=== PATIENT | female | born 1985 | race Caucasian/White ===

== ENCOUNTER 2016-09-24 08:27 | Inpatient (IN) | payer OTHER ==
[~2016-09-24] VITALS: Ht 162.6 cm; Wt 87.2 kg
--- NOTE | ~2016-09-24 | TXPLANREV ---
"PATIENT: AMBER CAMPOS S | | [facility] UNIT #: [id number] | [address] AGE/SEX: 31 F : 87 | [address] | [place] [address] ADMIT/REG DATE: 09/24/16 | ROOM: [facility] LOC: ADTC | ADTC | Treatment Plan/Staffing Review Date: 2016 Treatment plan was reviewed and determined appropriate as written: TREATMENT PLAN IS APPROPRIATE WRITTEN. Treatment plan was reviewed and the following changes/addition/deletions are necessary: NO CHANGES ARE INDICATED AT THIS TIME. Discharge plans were reviewed and determined appropriate as previously documented: YES Discharge plans were reviewed and determined to be as follows: CLIENT HAS VERBALIZED WILLINGNESS TO COMPLETE RECOMMENDED AFTERCARE HERE AT [facility]. TENTATIVE DISCHARGE DATE IS 2016. Other pertinent issues discussed during this staffing review include: CLIENT IS WORKING ON STEP ONE, STINKIN THINKIN AND FEELINGS LETTERS. SHE APPEARS TO BE GAINING NEW INSIGHT AND UNDERSTANDING. CLIENT WOULD LIKELY BENEFIT FROM CODEPENDENCY TREATMENT DURING THE COURSE OF HER AFTERCARE. NO FAMILY WILL BE INVOLVED. Staff Present: SUNNI MONGE PRIMARY COUNSELOR: ANNIE BARRAGAN [facility] Client Signature Counselor Signature Date Time "
--- NOTE | ~2016-09-24 | TXPLANREV ---
"PATIENT: AMBER CAMPOS S | | [facility] UNIT #: [id number] | [address] AGE/SEX: 31 F : 87 | [address] | [place] [address] ADMIT/REG DATE: 09/24/16 | ROOM: [facility] LOC: ADTC | ADTC | Treatment Plan/Staffing Review Date: 08 OCTOBER 2016 Treatment plan was reviewed and determined appropriate as written: TREATMENT PLAN IS APPROPRIATE WRITTEN. Treatment plan was reviewed and the following changes/addition/deletions are necessary: ADDITIONAL TX PLANS WERE CREATED TO ADDRESS FEELINGS LETTERS. Discharge plans were reviewed and determined appropriate as previously documented: NONE PREVIOUSLY DOCUMENTED. Discharge plans were reviewed and determined to be as follows: CLIENT WILL BE RECOMMENDED TO COMPLETE OUTPATIENT AFTERCARE. TENTATIVE DISCHARGE DATE IS 2016. Other pertinent issues discussed during this staffing review include: CLIENT APPEARS TO BE GAINING NEW INSIGHT AND UNDERSTANDING. SHE IS COMPLIANT. CLIENT HAS COMPLETED GETTING STARTED PACKET AND PARTS OF STEP ONE. SHE WILL BE ASSIGNED FEELINGS LETTERS AND LETTING GO OF THE NEED TO CONTROL. IT DOESN'T APPEAR THAT SHE WILL HAVE ANY FAMILY SUPPORT. Staff Present: PIPE COLE PRIMARY COUNSELOR: ANNIE BARRAGAN [facility] Client Signature Counselor Signature Date Time "
--- NOTE | ~2016-09-24 | RESCARESUM ---
"PATIENT: AMBER CAMPOS S | | 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 SHE HAS GAINED NEW UNDERSTANDING AND INSIGHT IN TO THE POWER OF ADDICTION AND HOW IT HAS NEGATIVELY IMPACTED ALL AREAS OF HER LIFE. Continued Obstacles to Sobriety/Relapse Issues: LACK OF HEALTHY SUPPORT SYSTEM (FAMILY), OLD USING FRIENDS/PLACES, ISOLATING, NEGATIVE THINKING, UNREALISTIC EXPECTATIONS OF SELF AND OTHERS, FAILURE TO FOLLOW THROUGH WITH AFTERCARE RECOMMENDATIONS, AA/NA FELLOWSHIP AND USING HER SPONSOR. Family Issues Addressed: CLIENT ADDRESSED FAMILY OF ORIGIN ISSUES BUT NEEDS ADDITIONAL WORK ON THESE. Y Individual Therapy Y Group Therapy Y Educational Series on Substance Abuse N Parents/Significant Others Attended Family Program N Acute Medical Problems During the Course of Treatment Y Accepting of Substance Abuse Problem Completed AA Step # 1 During This Level of Care CLIENT DID WELL WITH THIS Significant Incidences During Treatment: NONE Reason For Discharge: Y Completed Residential [place] Goals and Ready For Next Level of Care Continuing Care Plan/Recommendations: Y Sponsor Y AA Meetings/NA Meetings Y Outpatient Y Co-dependency Services Y [address] PATIENT: AMBER CAMPOS S | | [facility] UNIT #: [id number] | [address] AGE/SEX: 31 F : 87 | [address] | [place] [address] ADMIT/REG DATE: 09/24/16 | [facility] LOC: ADTC | ADTC | Summary of Residential Care House NEEDS CONSIDERATION IF CLIENT IS UNABLE TO MAINTAIN SOBRIETY. Specific Continuing Care Plan: CLIENT WILL BE REFERRED TO OUTPATIENT AFTERCARE AT [facility] WITH ANNIE BARRAGAN. CLIENT WILL ATTEND BI-WEEKLY INDIVIDUAL SESSIONS AND WEEKLY GROUP THERAPY/CODEPENDENCY. CLIENT WILL BE REQUIRED TO ATTEND AT LEAST TWO AA/NA MEETINGS EACH WEEK AND HAVE ONE ON ONE SESSIONS WITH HER SPONSOR WEEKLY. PRIMARY COUNSELOR: ANNIE BARRAGAN [facility]"
--- NOTE | ~2016-09-24 | INDIVTXPLN ---
"PATIENT: AMBER CAMPOS S | | [facility] UNIT #: [id number] | [address] AGE/SEX: 31 F : 87 | [address] | [place] [address] ADMIT/REG DATE: 09/24/16 | ROOM: [facility] LOC: ADTC | ADTC | Individualized Treatment Plan Date: 01 OCTOBER 2016 Problem Statement/Issue Identified: DIANA'S ONGOING HISTORY OF SUBSTANCE ABUSE HAS RESULTED IN SERIOUS CONSEQUENCES IN ALL AREAS OF HER LIFE. HER CHEMICAL USE HAS RESULTED IN CRIMINAL THINKING WHICH EVENTUALLY LED TO CONVICTIONS ON FELONY DRUG CHARGES, INCARCERATION AND PROBATION. Goal: DIANA WILL HONEST EXAMINE AND BE WILLING TO IDENTIFY SPECIFIC EXAMPLES OF ALCOHOL/DRUG RELATED CHOICES AND BEHAVIORS THAT HAVE RESULTED IN NEGATIVE CONSEQUENCES IN HER LIFE AND HER RELATIONSHIPS. Objectives/Activities to achieve goal: 1. Diana will complete GETTING STARTED IN TREATMENT packet identifying her feelings about being in treatment, a brief life history and her commitment statement. She will process her work and any insights gained with her primary counselor and selected pages in group. Due Date: Complete: Incomplete: 2. Diana will read MARIANA GOMEZ identifying parallels from examples provided in the text to her own behaviors and choices. She will process her work with her primary counselor. Due Date: Complete: Incomplete: 3. Diana will complete an honest and thorough STEP ONE providing specific examples of powerlessness and unmanagability. She will process her work with her primary counselor and share specific pages in group. Due Date: Complete: Incomplete: 4. Diana will complete MY CHANGE PLAN identifying changes you are willing to make in your recovery to improve chances of successful and custodial sobriety. She will process her work and insights gained with her primary counselor. Due Date: Complete: Incomplete: Client signature Date Counselor signature Date Outcome/Measurement of Progress Towards Goal: Counselor's signature Date "
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
--- NOTE | ~2016-09-24 | CLPRLASSUM ---
"PATIENT: AMBER CAMPOS S | | [facility] UNIT #: [id number] | [address] AGE/SEX: 31 F : 87 | [address] | [place] [address] ADMIT/REG DATE: 09/24/16 | ROOM: [facility] LOC: ADTC | ADTC | Client Problem List/Assessment Summary Date: 01 OCTOBER 2016 Problems identified by the client: PRIMARY SUPPORT GROUP, SOCIAL, EDUCATION, OCCUPATIONAL, CHILD CUSTODY, LEGAL Problems identified by significant others: SAME ABOVE Client's Strengths as Identified by Client: OUTGOING, OPEN-MINDED, STRONG, LEADER, EASY TO GET ALONG WITH, GOOD LISTENER, UNDERSTANDING, BIG HEART, PATIENT Problem List: Endy ORTIZ'S ONGOING HISTORY OF CHEMICAL ABUSE HAS RESULTED IN SERIOUS CONSEQUENCES IN ALL AREAS OF HER LIFE. HER CHEMICAL USE HAS RESULTED IN CRIMINAL THINKING WHICH EVENTUALLY LED TO CONVICTIONS ON FELONY DRUG CHARGES. Endy ROTIZ WILL NEED TO GAIN NEW UNDERSTANDING AND AWARENESS OF POTENTIAL RELAPSE TRIGGERS AND ISSUES; SHE WILL NEED TO DEVELOP A PLAN TO DEAL WITH THEM THEY ARISE TO AVOID RELAPSE. Endy ORTIZ HAS GUILT AND SHAME FOR THE PAIN SHE HAS CAUSED HER CHILDREN BY HER ONGOING DRUG USE. Endy ORTIZ HAS UNRESOLVED FAMILY OR ORIGIN ISSUES. Endy ORTIZ NEEDS ONGOING WORK TO BUILD A STRONGER RELATIONSHIP WITH HER HIGHER POWER. Code Webster: T: to be addressed during course of treatment O: problem noted, expected to resolve itself with abstinence--specific tx plan not required R: problem noted, will be referred upon discharge PRIMARY COUNSELOR: ANNIE BARRAGAN [facility]"
--- NOTE | ~2016-09-24 | INDIVTXPLN ---
"PATIENT: AMBER CAMPOS S | | [facility] UNIT #: [id number] | [address] AGE/SEX: 31 F : 87 | [address] | [place] [address] ADMIT/REG DATE: 09/24/16 | ROOM: [facility] LOC: ADTC | ADTC | Individualized Treatment Plan Date: 2016 Problem Statement/Issue Identified: DIANA NEEDS TO GAIN AWARENESS OF POTENTIAL RELAPST TRIGGERS AND ISSUES; SHE WILL NEED TO DEVELOP A PLAN TO DEAL WITH THEM THEY ARISE. Goal: DIANA WILL DEVELOP AN EFFECTIVE PLAN TO DEAL WITH POTENTIAL RELAPSE TRIGGERS/ISSUE. Objectives/Activities to achieve goal: 1. Diana will obtain a TEMPORARY SPONSOR while she is in treatment. Due Date: Complete: Incomplete: 2. Diana will complete MY CHANGE PLAN identifying changes she is willing to make in thinking, behaviors and friends to reinforce her recovery. She will process her work with her primary counselor and selected pages in group. Due Date: Complete: Incomplete: Client signature Date Counselor signature Date Outcome/Measurement of Progress Towards Goal: Counselor's signature Date "
--- NOTE | 2016-09-24 14:03 | NUR ---
INITIAL CONTACT: Did talk with this client and welcomed her to treatment. Explained that we will sit down tomorrow and visit. Encouraged her to complete initial paperwork.
--- NOTE | 2016-09-24 15:53 | NUR ---
ADMISSION NOTE Client is a 31 y/o single female, referred to treatment by probation and brought here today by her significant other from their home in [place] where they reside with his mother. Client anticipates that her significant other will participate in family group. Client states NKMA and brings no medications with her today. Client states DOC is meth, last used 5 months ago. Client staes no other drug or alcohol consumption during that time. Client was searched, no contraband found. Rights/Responsibilities: Copy given and explained to client. Signed and accepted by client. Client oriented to physical lay out of the ADTC unit, given Big Book and admission packet. A Elver was assigned. Misti
--- NOTE | 2016-09-24 18:24 | NUR ---
Education: 1 Hour. Client attended Quentin Garg video " Unhealthy Boundaries."
--- NOTE | 2016-09-24 22:23 | NUR ---
Tech note : Client went on a mile and a half long walk, participated in guided meditation and went to an onsite AA meeting. She was seen by the DR, checked into her room and gave her first intro. SE; Entering Tx.
--- NOTE | 2016-09-25 04:21 | NUR ---
tech note: client was motionless in no distress at all bed checks.
--- NOTE | 2016-09-25 14:03 | NUR ---
Group 1.5 Hr Ratio 2:22/Topic today was confronting properly. Client shared how she could relateto wanting respect and how if she did not get it she reacted negitively.
--- NOTE | 2016-09-25 14:13 | NUR ---
INDIVIDUAL SESSION 1 HR: Client ORIENTED TO TREATMENT GUIDELINES, GOALS & OBJECTIVES. She verbalized understanding. Began to review her BIO/PSYCHO/SOCIAL ASSESSMENT. Client was cooperative throughout interview and shed tears from time to time. Client shared that she and her Significant Other were arrested April 07, 2016 and charged with 5 felonies charges of Possession of a Controlled Substance and Possession with Intent to Distribute. She was sentenced the first of the month to 3 years probation and treatment. Client born and raised in [place]. She and SO (originally from [place]) were in the state to visit his mother when arrested. Client shared that she has been drinking/using since the age of 15. Client identifies both parents as addicts, stating that her dad of cardiac problems excerbated by drug use about six years ago. Client shared that she has been 7 times with two pregnancies ending in miscarriage. Client said she lost cu stody of her children due to being homeless, but has maintained relationships with four of them. One son was addopted as an infant. The others are with their respective fathers. Client shared that she spent five months in [facility] after her arrest which gave her time to think about all of this. She also turned 31 years old which was a reality check. Client was accused of selling pot when she was in 8th grade and kicked out of school. She never went back. She is glad that getting her GED is part of her probation order. Client encouraged to work on GETTING STARTED packet and given LETTING GO OF THE NEED TO CONTROL. Session 09/29
--- NOTE | 2016-09-25 14:25 | NUR ---
FAMILY NOTE: Failed attempt to reach client's SO. Left msg for him to call back.
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
--- NOTE | 2016-09-25 14:29 | NUR ---
Afternoon Group, 1.0 hours, 02/18 ratio, Client attended and actively participated in group which consisted of homework shared and discussion of taking suggestions from others while in treatment. Client listened while others shared
--- NOTE | 2016-09-25 15:26 | NUR ---
Tech Note: Client attended speaker meeting with volunteer Adriel Whitney Client is working on Getting Started.
--- NOTE | 2016-09-25 20:59 | NUR ---
Tech note: client watched tv and movies Attended optional offsite AA meeting SE:speaker
--- NOTE | 2016-09-26 04:31 | NUR ---
Bed note: client was in bed with eyes closed and no distress at all bed checks.
--- NOTE | 2016-09-26 15:25 | NUR ---
Tech notes: Client attended NA panel and is working on Getting started
--- NOTE | 2016-09-26 20:51 | NUR ---
Tech Note: Client played "5 Second Rule Game" for Recreation and attended an outside AA Speaker Meeting at [address]. Late to client meeting. S/E: Nap
--- NOTE | 2016-09-27 04:13 | NUR ---
tech note: client was motionless in no distress at all bed checks.
--- NOTE | 2016-09-27 13:37 | HP ---
ADMIT: 09/24/2016 RM/LOC: Ren[facility] MR#: [id number] [address] [facility] [address] [place], [place] [id number] AMBER CAMPOS [address] [address] History and Physical SEX: F AGE: 31 : 1985 DATE OF SERVICE: CHIEF COMPLAINT: Drug problem. CLINICAL HISTORY: The patient is a 31-year-old white female from [place] who recently moved to [place]. The patient actually moved from [place] to try and get away from the drug culture she had fallen into. She and her significant other had moved to [place] in March 2016. They had been in [place] for less than 2 weeks when she was arrested for 5 different felonies. Ultimately 4 of these were dropped and one was lowered to a class 4 felony so that she could be placed on probation. The patient was arrested for possession of methamphetamine, pot, hydrocodone, Suboxone with intent to deliver. Ultimately she pleaded out and was able to get probation. The patient has been clean since she was arrested on 04/07/2016. She did spend 5 months in senior care from 04/07/2016 until 09/14/2016, she was in senior care. She was released from senior care approximately 10 days ago and has been staying with a family member and has not used since getting out of senior care. As a portion of her probation agreement, she has to complete residential treatment and so she is admitted at this time for treatment of her polysubstance dependency. She readily admits that she is a drug addict and that her drug of choice is methamphetamine. She first started using meth at age 17 and has been an IV user off and on for the past 14 years. The only significant period of time that she has not used is when she has been . Typically she uses anywhere from 1 to 2 g per day. She went through a period of time when she just used IV. Most recently she has been primarily smoking meth. In addition to her daily meth use, she also uses pot daily although the more meth she uses the less pot she smokes. She notes that she used to be a daily user, but now is down to smoking pot usually only 2 or 3 days a week and usually just 2-3 bowls per day. The patient also has had some past abuse of alcohol. There was a period of time when her children were taken away from her that she was drinking heavily on a daily basis from age [age]. However, she notes when she is using meth heavily, she usually do not have much desire to drink, but if not using meth, she will drink on a regular basis. In addition to her meth, pot, and alcohol use, she has used cocaine off and on in the past but prefers meth over cocaine. She denies any abuse of prescription drugs and denies any abuse of opiates although when she was arrested, she had both hydrocodone and Suboxone in her possession. She notes that she likes to keep the opiates around for when she gets headaches since she does have a history of migraines. She then uses the opiates as they would be normally prescribed although she does not have a prescription for them. She usually gets the opiates that she takes for headaches on the street. She has had no prior treatment. As noted, she comes to treatment at this time after having been clean for approximately the last 6 months. PAST MEDICAL HISTORY: The patient's only hospitalizations have been for deliveries. She has had 5 children, all delivered via . She had C- sections in 2003, 2005, 2006, 2008, and 2012. At the time of her last C- section, they did do a tubal ligation. ADMIT: 09/24/2016 RM/LOC: Renita [facility] MR#: [id number] [facility] [address] [place] [id number] AMBER CAMPOS [address] [address] History and Physical SEX: F AGE: 31 : 1985 PAST SURGICAL HISTORY: C-sections x5 plus the tubal ligation. CURRENT MEDICATIONS: None. ALLERGIES: NONE KNOWN. OBSTETRICAL AND GYNECOLOGICAL HISTORY: She is a 7 para 5-0-2-5 status post tubal ligation. She notes her menses are regular with last menstrual period having been 04/07/2016. REVIEW OF SYSTEMS: A 12-point review of systems is essentially negative except for her recent difficulty with amenorrhea. As noted, she normally has regular menses, but since she was arrested, she has not had a menses. She does note that while she set in senior care for the last 5 months, she did put on approximately 30 pounds of weight which may have affected her menstrual cycle. Also she notes she is under a great deal of stress due to her legal issues and other financial problems. Do note, she is a smoker, typically smokes a half pack a day. Remainder of her review of systems is otherwise negative. SOCIAL HISTORY: The patient is single. She has been with her current significant other for the past year. She notes she has 5 children from prior relationships. Her oldest child is 13 and lives with his father in [place]. She notes her 11-year-old, 9-year-old, and 4-year-old, live with a family member in [place]. Her 6-year-old, she gave up for adoption. She does not have custody of any of her children. The patient notes she dropped out of school in the 8th grade. She has never completed her GED. She is unemployed. When they moved to [place], were staying with his felipe's mother who lives here in [place]. FAMILY HISTORY: She notes that her parents when she was young. She notes her father is . He had a history of alcoholism and drug addiction and from a drug overdose in 2010. Her mother has a history of drug and alcohol abuse as well and she has been clean for a number of years. She notes that she has an older brother, who is a meth addict. She has a younger brother who does not use. From what she knows, there is a strong history of substance abuse on both sides of her family. PHYSICAL EXAMINATION: VITAL SIGNS: At this time temp is 97.3 pulse 75, respirations 16, blood pressure 108/67, height 5 feet 4 inches, and her weight is 193 pounds. GENERAL: The patient is a very healthy appearing 31-year-old adult female, in no acute distress. She is oriented x3. HEENT: Today is unremarkable. NECK: Supple. Thyroid not enlarged. No cervical adenopathy. LUNGS: Noted to be clear. HEART: Regular rhythm without murmur. ABDOMEN: Somewhat obese, soft, and nontender. No masses. No organomegaly. She does have some mild tenderness in the left lower quadrant. ADMIT: 09/24/2016 RM/LOC: Renita [facility] MR#: [id number] [address] [place] [id number] [place] [address] History and Physical SEX: F AGE: 31 : 1985 BREAST and PELVIC: Exams not performed. EXTREMITIES: Normal to gross exam. NEUROLOGICAL: Within normal limits. INTEGUMENT: No rashes. MENTAL STATUS EXAMINATION: She is pleasant and cooperative. Affect is appropriate. No bizarre ideation. No delusions or hallucinations. She appears to be of average intelligence. Her memory is intact. She is oriented x3. Insight is limited. Judgment is guarded. ASSESSMENT AT THE TIME OF ADMISSION: 1. Stimulant/methamphetamine use disorder, severe. 2. Cannabis use disorder, severe. 3. Alcohol use disorder, moderate. 4. Tobacco use disorder. 5. Secondary amenorrhea for the past 6 months. 6. History of migraine headaches. PLAN: To admit the patient to the residential care program at the [facility] with tentative discharge date of 10/22/2016. Upon completion of treatment, she is unsure of her plans. She will have to fulfill her probation requirements. She would like to return to her previous or current living arrangement with her significant other and his mother, but notes that she will do whatever it takes to remain in compliance with her probation agreement. She does recognize the importance of a supportive environment and also recognizes the importance of remaining involved in AA and NA a to help maintain her long-term sobriety. Mike Ribeiro MD/ quyen JOB #: [id number] CC: Mike Ribeiro, Attending Physician FAMILY PHYSICIAN, Family Physician
--- NOTE | 2016-09-27 16:26 | NUR ---
Tech Note: Client participated in Big Book study and is working on Feelings Letters. She had a visitor.
--- NOTE | 2016-09-27 23:53 | NUR ---
TECH NOTE: Client attended AA Panel, participated in community clean, watched TV and movies and attended [employer]PER[employer] Meeting S/E: Visit, [employer]
--- NOTE | 2016-09-28 05:00 | NUR ---
BED NOTE: Client lying motionless, with eyes closed at all bedchecks.
--- NOTE | 2016-09-28 10:30 | NUR ---
Tech Notes: Client is working on Getting started
--- NOTE | 2016-09-28 14:13 | NUR ---
Education Note: Client watched video for education,
--- NOTE | 2016-09-28 14:31 | NUR ---
Education/1 hr/ Focused on looking at clients character defects and we read "The Wall" and then they each ale their wall and explained them to the group. This client participated.
--- NOTE | 2016-09-28 15:33 | NUR ---
Recovery 101, 1.0 hours, Client attended and actively participated in Recovery 101 which focused on feeling special or unique from the book 12 Things That Mess Up Recovery.
--- NOTE | 2016-09-28 18:32 | NUR ---
Education note: 1 hour lecture on communication given by counselor
--- NOTE | 2016-09-28 23:08 | NUR ---
Tech note: played catchphrase for rec and attended NA meeting SE: got 6 month coin
--- NOTE | 2016-09-29 03:51 | NUR ---
Bed note: client was in bed with eyes closed and no distress at all bed checks.
--- NOTE | 2016-09-29 10:51 | NUR ---
Tech Note: Client participated in light stretching for morning exercise. Client followed programming.
--- NOTE | 2016-09-29 11:30 | NUR ---
GROUP 1.5 HRS. 1:9 Group discussion included issues of gaining healthier coping skills to deal with feelings and communication. Peer processed HOW TO GET STARTED IN TREATMENT assignment. This client was mostly quiet but appeared attentive.
--- NOTE | 2016-09-29 14:16 | NUR ---
Education: Client viewed a video presentation, "The Enablers."
--- NOTE | 2016-09-29 16:26 | NUR ---
Relapse prevention, 1.0 hours, Client attended and actively participated in relapse prevention education which focused on developing a relapse prevention plan.
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
--- NOTE | 2016-09-29 19:42 | NUR ---
Education: 1 hour lecture on "Step 1" given by counselor
--- NOTE | 2016-09-29 23:19 | NUR ---
Client worked with kota for recreation, participated in guided meditation, attended the on unit A.A.Meeting.
--- NOTE | 2016-09-30 04:10 | NUR ---
Bed Note: Client was in bed and motionless with no sign of distress at all bed checks
--- NOTE | 2016-09-30 11:45 | NUR ---
AM GROUP 10:1/1.5 HR: Client and peers welcomed and ORIENTED TWO NEW MEMBERS TO GROUP PURPOSE, GUIDELINES, GOALS AND OBJECTIVES. The group heard two individuals process assignments, while this client shared more detail and new insights as part of her feedback. Client related to having to take on parental responsibilities for her younger brother when she was only [age] years old. Client talked about the anger that built up toward her mother, an active addict, who would eventually introduce this client to meth. Client verbalized her realization in treatment that she is on the same road her mother has been on and doesn't want this for herself or her children.
--- NOTE | 2016-09-30 15:00 | NUR ---
Tech Note: Client participated in light stretching for morning exercise and went on an outdoor walk in the afternoon. Client stated that she is working on, "How to Get Started in Treatment."
--- NOTE | 2016-09-30 15:00 | NUR ---
SPIRITUALITY 1 HR: Clt participated in a quiz about spiritual principals and interacted with the grp.
--- NOTE | 2016-09-30 15:08 | NUR ---
Education: Client saw the video, "Chalk Talk" by Father Perez.
--- NOTE | 2016-09-30 23:15 | NUR ---
Tech note : Client went on a mile and a half walk for rec and attended an onsite NA meeting. SE; group
--- NOTE | 2016-10-01 04:29 | NUR ---
Bed note : Client was in bed motionless with eyes closed at all bed checks.
--- NOTE | 2016-10-01 10:24 | NUR ---
Tech note: Client is working on Step 1 and mtg with pablito
--- NOTE | 2016-10-01 11:30 | NUR ---
AM/WOMEN'S GRP 1.5 HRS, Ratio 1:8/ Clt participated in grp discussion and could relate to being so much better than anyone, as she has found God, she's been clean for 5 months, that she has taken care of all those issues from her past. Then she shared she has given up a child for adoption and has 4 other kids who live with their fathers. Clt appears dilusional about where she really is in her recovery.
--- NOTE | 2016-10-01 13:11 | NUR ---
Education note: Client attended education speaker
--- NOTE | 2016-10-01 14:15 | NUR ---
INDIVIDUAL SESSION 1 HR: Client processed from GETTING STARTED packet today. Has been very thorough and willing to identify specific examples of thinking and behaviors. Client read through her first PROBLEMS/NEEDS LIST, TREATMENT PLAN GOALS AND OBJECTIVES. She did verbalized understanding and willingness. Client signed all copies. Additional copies were made for her journal. She is assigned STEP ONE & LETTING GO OF THE NEED TO CONTROL.
--- NOTE | 2016-10-01 18:52 | NUR ---
Education: 1 Hour. Client attended "Healthy Family" video.
--- NOTE | 2016-10-01 23:37 | NUR ---
TECH NOTE: Client played a game for Recreation, participated in Guided Meditation and attended in house AA Meeting. S/E: Walk
--- NOTE | 2016-10-02 05:08 | NUR ---
tech note: client was motionless in no distress at all bed checks.
--- NOTE | 2016-10-02 12:00 | NUR ---
Group 1.5hr/ 11:1 Clients all oriented peer to group rules and shared what motivates them with recovery for themselves plus what they need help with while here. This client shared openly
--- NOTE | 2016-10-02 13:00 | NUR ---
PEER REVIEWS 1.5 HRS: Clt participated in peer reviews and took a risk to give open and honest feedback to those receiving a review.
--- NOTE | 2016-10-02 15:50 | NUR ---
Tech Note: Client went on outdoor walk, for exercise, attended a speaker session on Cross Addiction (Hollis Lopez) and is working on Step 1.
--- NOTE | 2016-10-02 23:30 | NUR ---
Tech Note: Client visited with peers and attended the A.A. Step Meeting at [address]th and [address]. SE: Peer Review
--- NOTE | 2016-10-03 04:16 | NUR ---
tech note: client was motionless in no distress at all bed checks.
--- NOTE | 2016-10-03 16:20 | NUR ---
Tech Note: Client went to offsite AA meeting and is working on Step 1. She had visitors.
--- NOTE | 2016-10-03 21:23 | NUR ---
tech note:worked on beaded projects for rec and walked to AA meeting. Watched TV and movies SE:visits and phone
--- NOTE | 2016-10-04 04:51 | NUR ---
bed note: client was in bed with eyes closed and no distress at all bed checks.
--- NOTE | 2016-10-04 16:09 | NUR ---
Tech Note: Client participated in Big Book study and is working on Step 1. She had a visitor.
--- NOTE | 2016-10-04 23:57 | NUR ---
Tech note: client attended AA panel, Participated in Community clean and watched tv and movies. SE:visits
--- NOTE | 2016-10-05 04:11 | NUR ---
Bed Note: client was in bed with eyes closed and no distress at all bed checks.
--- NOTE | 2016-10-05 10:07 | NUR ---
Tech notes: Client is working on Step 1
--- NOTE | 2016-10-05 11:30 | NUR ---
Experiential Group 1.5 hr/ 2:20 Clients all participated in family sculpturing by role-playing, sharing, relating. This client was attentive and involved.
--- NOTE | 2016-10-05 13:36 | NUR ---
Education note: Client watched a video for education today.
--- NOTE | 2016-10-05 16:00 | NUR ---
Recovery 101 1 hr/ Clients all were given highlighters and discussed topics in the Big Book on: anger, resentments, 12 promises, forgiveness, 1/2 measures, honesty, selfishness and fear. Discussed that AA is grandpa to NA so offers alot of wisdom.
--- NOTE | 2016-10-05 18:12 | NUR ---
Education: 1 Hour. Client attended "Feelings" lecture.
--- NOTE | 2016-10-05 23:55 | NUR ---
tech note: Client played Pictionary for recreation & attended onsite NA meeting. SE: All Day.
--- NOTE | 2016-10-06 04:27 | NUR ---
tech note: client was motionless in no distress at all bed checks.
--- NOTE | 2016-10-06 11:14 | NUR ---
Tech Note: Client participated in light stretching for morning exercise client stated that she is working on reading the Big Book.
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
--- NOTE | 2016-10-06 14:48 | NUR ---
Education: Client saw the video,"It Can't Happen to Me."
--- NOTE | 2016-10-06 15:00 | NUR ---
Relapse Prevention, 1.0 hours, Client attended and actively participated in relapse prevention education which focused on relapse justifications and how to avoid them.
--- NOTE | 2016-10-06 17:15 | NUR ---
FAMILY NOTE: It does not appear that client will have any family involvement. Her Significant Other has not returned my calls. She says that he is working a lot of hours.
--- NOTE | 2016-10-06 18:36 | NUR ---
Education: 1 Hour. Clients attended "Boudaries" Lecture.
--- NOTE | 2016-10-06 23:02 | NUR ---
Tech Note: Client played a pictionary for recreation, participated in Guided Meditation, and attended the on unit A.A.Meeting. SE: Group
--- NOTE | 2016-10-07 04:08 | NUR ---
tech note: client was motionless in no distress at all bed checks.
--- NOTE | 2016-10-07 10:19 | NUR ---
Tech Note: Client participated in light stretching for morning exercise. Client stated that she is working on Step One.
--- NOTE | 2016-10-07 12:16 | NUR ---
AM GROUP 11:02/08.5 HR: Client and peers heard two peers process from GETTING STARTED IN TREATMENT packets. The younger male doesn't believe that he is dealing with a disease whereas, the older male who processed from his own packet, recognizes the disease but wants to blame others for the way his life has played out. This client was mostly quiet, but did ask clarifying questions of the younger peer and how his using has impacted his life.
--- NOTE | 2016-10-07 14:10 | NUR ---
Education: Client watched the video, "Pleasure Unwoven."
--- NOTE | 2016-10-07 16:48 | NUR ---
SPIRITUALITY 1 HR. Clients participated in reading, YOU ARE SPECIAL by Pravin Faye. All listed their "stars" (positive messages) and "dots" negative messages) and shared with group and were assigned to also share with primary counselor.
--- NOTE | 2016-10-07 18:44 | NUR ---
Education note: Client recieved education from a service manager on sterps 2 & 3
--- NOTE | 2016-10-07 23:23 | NUR ---
Tech note : Client went on a walk for rec and attended an onsite NA meeting. SE: walk
--- NOTE | 2016-10-08 04:36 | NUR ---
Bed note : Client was motionless with eyes closed at all bed checks.
--- NOTE | 2016-10-08 11:30 | NUR ---
AM/WOMEN'S GRP 1.5 HRS, Ratio 1:8/ Clt participated in grp discussion on various topics, including men and sex. They brought up that there are guys here who are talking sex and it goes on and on and lasted all day the day before. This clt sat quietly, having no input on it.
--- NOTE | 2016-10-08 15:29 | NUR ---
Tech Note: Client watched 2nd half of Pleasures Unwoven and is working on Step 1.
--- NOTE | 2016-10-08 16:46 | NUR ---
FAMILY EDUCATION 3 hrs. Client attended alone and took part in the discussion on the disease concept. Client related to progression of disease and related consequences.
--- NOTE | 2016-10-08 17:01 | NUR ---
INDIVIDUAL SESSION 1 HR: Client looked over and signed TX PLAN REVIEW and a new [place] PLAN focused on feelings letters to her parents and her children. Client given STEPS TWO & THREE as well as MARIANA GOMEZ. We discussed her aftercare plan. She will be doing it here at [facility].
--- NOTE | 2016-10-08 23:26 | NUR ---
Tech Note: Client played a game for recreation, participated in Guided Meditation, and attended the on unit A.A.Meeting. SE: A.A.Meeting
--- NOTE | 2016-10-09 04:08 | NUR ---
Bed note: client was in bed with eyes closed and no distress at all bed checks.
--- NOTE | 2016-10-09 12:00 | NUR ---
GROUP 1.5 HR/ 11:1 Client heard peers share packets on step 1 and relapse, plus some quiet/new clients shared more about themselves. This client was involved, shared about herself, wants to go back to school, read bible in penitentiary and it really helped her, has big heart but when using didn't care about anyone and was mean. She stated "I found God and Found Myself in [place]!! is very grateful!!
--- NOTE | 2016-10-09 16:28 | NUR ---
Tech Note: Client watched Part 2 of Anatoliy Mei's "Predator" and is working on Spirituality, Feelings Letters and [place]ck[place] Thinkin.
--- NOTE | 2016-10-09 16:29 | NUR ---
PEER REVIEW 1.5 HRS. Client participated in peer review exercise and took risk to give honest and direct feedback.
--- NOTE | 2016-10-09 20:36 | NUR ---
Tech note: Watched tv and movies. Attended optional offsite AA mtg SE:all day
--- NOTE | 2016-10-10 04:37 | NUR ---
Bed note: client was in bed with eyes closed and no distress at all bed checks
--- NOTE | 2016-10-10 16:28 | NUR ---
TECH NOTE: Client attended NA Panel and working on Feelings and ST and was on the phone frequently today
--- NOTE | 2016-10-10 23:07 | NUR ---
Tech note : Client played catch phrase for rec, watched the football game and walked to an offsite AA meeting. SE; football game
--- NOTE | 2016-10-11 04:07 | NUR ---
tech note: client was motionless in no distress at all bed checks.
--- NOTE | 2016-10-11 15:05 | NUR ---
Tech note: Client attended BB study and is working on Fl's and Arnaud Mcdonough
--- NOTE | 2016-10-11 23:44 | NUR ---
Tech Note: Client attended the A.A.Panel and participated in community clean. Client also attended the MANAGER WOMEN Meeting SE: Visits
--- NOTE | 2016-10-12 05:10 | NUR ---
tech note: client was motionless in no distress at all bed checks.
--- NOTE | 2016-10-12 16:17 | NUR ---
TECH NOTE: Client attended an off-site AA meeting, watched TV and took a nap
--- NOTE | 2016-10-12 23:39 | NUR ---
tech note:client went on walk for recreation & attended onsite NA meeting. Client was seen walking the halls with male peer and sitting by him numerous times throughout the night. Client talked on the phone & watched tv. SE:AA meeting.
--- NOTE | 2016-10-13 05:27 | NUR ---
Bed note; Client was motionless with eyes closed at all bed checks.
--- NOTE | 2016-10-13 14:33 | NUR ---
Tech Note: Client participated in light stretching for morning exercise and went on an outdoor walk in the afternoon. Client stated that she is working on, "Arnaud' Thinkin" and writing feelings letters.
--- NOTE | 2016-10-13 14:43 | NUR ---
Education: Client attended a presentation on AIDS, HIV and STDs.
--- NOTE | 2016-10-13 17:16 | NUR ---
Adri 1.5 hr group/ratio 1:9/ Group heard assignments of getting started, also discussed dealing with the past with child support, grief issues and being their for kids and the lack of. This client cried as she shared about her kids.
--- NOTE | 2016-10-13 17:54 | NUR ---
Relapse Prevention, 1.0 hours, Client attended and actively participated in relapse prevention education which focused on giving up controll.
--- NOTE | 2016-10-13 18:29 | NUR ---
Education: 1 hour lecture given by counselor on "Co-Dependency"
--- NOTE | 2016-10-13 23:45 | NUR ---
Tech note: Client went for a walk, attended an alumni meeting, participated in guided meditation and went to an onsite AA meeting. SE: All day
--- NOTE | 2016-10-14 04:26 | NUR ---
Bed note: Client was in bed with eyes closed and no distress at all bed checks
--- NOTE | 2016-10-14 10:20 | NUR ---
Tech note: Client is working on Fl's, Stisonido Thinkin, and mtg with pablito
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
--- NOTE | 2016-10-14 14:40 | NUR ---
Education Note: Client attended education by [facility]
--- NOTE | 2016-10-14 15:00 | NUR ---
SPIRITUALITY 1 HR: Clt participated in Spirituality exercise. They were put into 4 groups and each grp wrote a chapter(s) to a story. In the end they were all read, and they did join together nicely and it turned out interesting.
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
--- NOTE | 2016-10-14 23:04 | NUR ---
Tech note: Client worked on beaded project, celebrated 14 years clean time with staff and attended an onsite NA meeting. SE; NA
--- NOTE | 2016-10-15 00:46 | NUR ---
Education: I hour lecture by [facility] on HIV/STDs/AID. and testing for HIV.
--- NOTE | 2016-10-15 05:24 | NUR ---
Bed note: Client was in bed with eyes closed and no distress at all bed checks.
--- NOTE | 2016-10-15 10:08 | NUR ---
Tech notes: Client is working on Fl's and Arnaud Mcdonough
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
--- NOTE | 2016-10-15 12:55 | NUR ---
Education note: Client attended speaker Miguel
--- NOTE | 2016-10-15 15:00 | NUR ---
12 STEPS EDU, 1 hr/ Clt participated in an exercise on the 12 Steps and 12 Traditions.
--- NOTE | 2016-10-15 23:12 | NUR ---
TECH NOTE: Client went for a walk for recreation and attended AA Meeting S/E: Women's Grp
--- NOTE | 2016-10-16 05:27 | NUR ---
BED NOTE: Client was lying in bed, motionless with their eyes closed at all bedchecks:
--- NOTE | 2016-10-16 12:00 | NUR ---
Group 1.5 hr/ 10:1 Clients went over group rules to orient new members and heard peers share GS/Step 1 packets. This client was attentive and related. This client did share about 2 miscarriages, was 5 months along and stuffed the grief. She shared about being a caregiver to younger brother, mom focussed on younger boyfriend so lost her mom, went to foster care. She can see she has been like her mom with addictive/unhealthy relationship.
--- NOTE | 2016-10-16 13:06 | NUR ---
PEER REVIEWS 1.5 HRS: Clfawn participated in peer review exercise, and received her own. She heard she has resentments toward herself and her past, is hurt and angry, has to be a tough girl, blames herself, needs to be more serious, wants to be involved w/ everyone else and everything else that's happening, uses her smirk as a front, has low opinion of herself, afraid to feel, strives for male attention, hades behind laughter. She felt glad, sad and afraid.
--- NOTE | 2016-10-16 13:33 | NUR ---
Tech Note: Client participated in outdoor walk, watched "The Enablers" video and is working on Feelings Letters.
--- NOTE | 2016-10-16 15:21 | NUR ---
INDIVIDUAL SESSION 1 HR: Client and I discussed admonishment in Education the other day when staff asked client to move up front as she and male peer were laughing, etc during the programing. Client became tearful and said she was mad and hurt at first, but continued to process it and realized that I saved her from making poor choices and she expressed gratitude for that. She also processed part of her STEPS TWO AND THREE and does appear sincere in her Nano and want for sobriet y. She will be in Family Wednesday and I will be out of the office on Wednesday so our next session will be 10/21. [facility] PROMISES & BOUNDARIES FOR CODEPENDENTS.
--- NOTE | 2016-10-16 23:52 | NUR ---
Tech Note: Client participated in the reading of the guidelines and watched television/visited with peers. Client also attended the off unit A.A.Meeting SE: Counseling Session
--- NOTE | 2016-10-17 04:03 | NUR ---
tech note: client was motionless in no distress at all bed checks.
--- NOTE | 2016-10-17 16:02 | NUR ---
Tech Note: Client went to AA meeting and is working on Recovery Maintenance and Feelings Letters. She had a visitor.
--- NOTE | 2016-10-17 21:31 | NUR ---
Tech note:Clients worked on Echodioed projects and/or watched [employer] [place] for rec, Walked to AA meeting SE:visits and coffee
--- NOTE | 2016-10-18 04:42 | NUR ---
Bed Note: Client was in bed, motionless, with no signs of distress at all bed checks
--- NOTE | 2016-10-18 11:59 | NUR ---
Tech Note: Client went to an off site picnic. Client stated that she is working on, "Recovery Maintenance" and writing feelings letters.
--- NOTE | 2016-10-18 20:23 | NUR ---
Tech note: client attended AA panel, watched tv and movies. attended optional INTERLOCKING MACHINE OPERATOR meeting
--- NOTE | 2016-10-19 05:37 | NUR ---
Bed note: Client was in bed with eyes closed and no distress at all bed checks
--- NOTE | 2016-10-19 10:14 | NUR ---
Tech note: Client is working on recovery maint.
--- NOTE | 2016-10-19 12:00 | NUR ---
GROUP 1.5HR/ 10:1 Client heard peers share GS, feelings letter to child and Step 1 packets plus struggles with not having custody of child. All related to parts of what was shared. This client was involved in relating alot, shared about avoiding toxic relationship, related to reconnecting with her dad who she would see on roadside or at store, having long distance relationship with her kids in [place] and how moving out of state helped her escape toxic relationship.
--- NOTE | 2016-10-19 12:55 | NUR ---
Education note: Client watched one hour video.
--- NOTE | 2016-10-19 21:00 | NUR ---
FAMILY EDUCATION 3 HRS., GROUP 2 HRS. 1:9 Client attended alone and took part in the discussion on the family roles, codependency and detachment. She related to hero and lost child roles. Client appeared attentive and offered supportive feedback to peers and families who processed feelings letters.
--- NOTE | 2016-10-19 23:48 | NUR ---
TECH NOTE: Client went on a walk for recreation and attended Family Meeting: S/E: Family
--- NOTE | 2016-10-19 23:55 | NUR ---
EDUCATION NOTE: Client attended a one hour education by counselor on "Forgiveness".
--- NOTE | 2016-10-20 04:00 | NUR ---
BED NOTE: Client was lying in bed with eyes closed for all bed checks:
--- NOTE | 2016-10-20 11:28 | NUR ---
Tech Note: Client went for an outdoor walk for morning exercise. Client stated that she is working on, "Recovery Maintenance."
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
--- NOTE | 2016-10-20 15:00 | NUR ---
Relapse Prevention, 1.0 hours, Client attended and actively participated in relapse prevention education which focused looking for positive things in recovery by completing and discussing the worksheet My Beautiful World.
--- NOTE | 2016-10-20 18:48 | NUR ---
Education: 1 Hour. Client attended lecture on "Shame" given by staff.
--- NOTE | 2016-10-20 23:12 | NUR ---
Tech Note: Client played a game for rec, participated in Guided Meditation, and attended the on unit A.A.Meeting. SE: Rec
--- NOTE | 2016-10-21 04:23 | NUR ---
Bed Note: Client was in bed, motionless, and showed no signs of distress at all bed checks
--- NOTE | 2016-10-21 11:08 | NUR ---
Tech Note: Client went for an outdoor walk for morning exercise period. Client stated that she is working on, "Recovery Maintenance."
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
--- NOTE | 2016-10-21 15:00 | NUR ---
SPIRITUALITY 1 HR: Clt participated in spirituality and each group wrote a daily reflection reading. All readings were written with a lot of thought.
--- NOTE | 2016-10-21 15:57 | NUR ---
Education: Client heard a recovery speaker who shared his experience strength and hope.
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
--- NOTE | 2016-10-21 23:19 | NUR ---
Tech note: client played Catch Phrase for recreation & attended onsite NA meeting. SE: getting coin.
--- NOTE | 2016-10-21 23:29 | NUR ---
Education: 1 Hour. Client attended lecture on "Disease Concept."
--- NOTE | 2016-10-22 05:00 | NUR ---
tech note: client was motionless in no distress at all bed checks.
--- NOTE | 2016-10-22 09:52 | NUR ---
DISCHARGE NOTE Client left tx and personal belongings were sent with. Discharge instructions gone over and copy given.
== END 2016-10-22 09:53 | disposition home or self-care (01) | DRG 895 ==
LOC: ADTC 09:38
PROVIDERS: ADMIT Family Medicine
PROC: HZ34ZZZ Individual Counseling for Substance Abuse Treatment, Interpersonal (ICD-10-PCS; principal; 2016-09-24)
PROC: HZ43ZZZ Group Counseling for Substance Abuse Treatment, 12-Step (ICD-10-PCS; principal; 2016-09-24)
DX: F15.20 Other stimulant dependence, uncomplicated (principal); F10.20 Alcohol dependence, uncomplicated; F12.20 Cannabis dependence, uncomplicated; F17.210 Nicotine dependence, cigarettes, uncomplicated; N91.1 Secondary amenorrhea; G43.909 Migraine, unspecified, not intractable, without status migrainosus; Z63.72 Alcoholism and drug addiction in family; Z56.0 Unemployment, unspecified; Z65.3 Problems related to other legal circumstances; Z72.89 Other problems related to lifestyle